=== PATIENT | male | born 1960 | race Caucasian/White ===

== ENCOUNTER 2025-07-08 11:18 | Emergency (ER) | payer BC ==
[~2025-07-08] VITALS: Ht 172.7 cm; Wt 77.3 kg
--- NOTE | 2025-07-08 11:34 | ELECTROCARDIOGRAPH REPORT ---
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
[2025-07-08 11:54] LABS: MEAN PLATELET VOLUME 7.0 FL (7.4-10.4); RED CELL DISTRIBUTION WIDTH 14.3 % (11.5-14.5)
[2025-07-08 12:25] LABS: CREATININE 1.06 MG/DL (0.60-1.10); PRO BRAIN NATRIURETIC PEPTIDE 210 PG/ML (0-125); TOTAL CARBON DIOXIDE 26.8 MMOL/L (24-32); eCRCL 68 ML/MIN; eGFR 70 ML/MIN
--- NOTE | 2025-07-08 13:34 | Physician Documentation ---
History of Present Illness ~ Chief Complaint: Hypertension Stated Complaint: HIGH BLOOD PRESSURE Time Seen by MD: 12:53 HPI 65 year old male with hypertension at home over 200 systolic. He takes lisinopril. He describes a mild headache today but nothing acute, no neurologic deficits, no chest pain, no shortness of breath, no chest or abdominal pain, no nausea/vomiting. Medication Reconciliation Allergies: Coded Allergies: No Known Allergies (Unverified , 07/08/25) Review of Systems All Other Systems at this time: Reviewed and Negative Physical Exam Vital Signs: RN Vital Signs have been reviewed: Yes, Temperature: 97.6, Source: Temporal, Heart Rate: 62, Respiratory Rate: 12, BP: 195/114, Pulse Oximetry: 97, Weight: 77.270 Physical Exam HEENT: PERRL, moist oral mucosa, EOMI Pulmonary: No respiratory distress MSK: no deformity Skin: w/d/i, no rash Neuro: alert, nonfocal Psych: normal affect Progress Results/Orders Results/Orders Orders - MATT SANTOS MD Chest,Single View (07/08/25 11:30) Monitor (07/08/25 11:30) Saline Lock (07/08/25 11:30) Oxygen (07/08/25 11:30) Hs Troponin I W Calculations (07/08/25 13:30) Hs Troponin I W Calculations (07/08/25 14:30) Completed Orders - MATT SANTOS MD Chest,Single View (07/08/25 11:30) Cbc/Diff (07/08/25 11:30) BMP (07/08/25 11:30) PBNP (07/08/25 11:30) Electrocardiogram (07/08/25 11:30) Hs Troponin I W Calculations (07/08/25 11:30) Lisinopril Tablet (Zestril Tablet) (07/08/25 12:55) Medications Received in ER Medications (Trade) Dose Ordered Sig/Colleen Route PRN Reason Start Time Stop Time Status Last Admin Dose Admin (Zestril tablet) 10 mg ONCE ONCE PO 07/08/25 12:55 07/08/25 12:56 DC 07/08/25 13:05 10 MG Vital Signs 07/08/25 07/08/25 07/08/25 07/08/25 11:26 13:00 13:05 13:06 Temp 97.6 Pulse 68 62 62 Resp 18 12 12 B/P (MAP) 197/104 195/114 (141) Pulse Ox 98 97 Laboratory Tests Test 07/08/25 11:41 White Blood Count 4.9 Red Blood Count 4.48 L Hemoglobin 13.5 L Hematocrit 40.0 L Mean Corpuscular Volume 89.2 Mean Corpuscular Hemoglobin 30.1 Mean Corpuscular Hemoglobin Concent 33.8 Red Cell Distribution Width 14.3 Platelet Count 213 Mean Platelet Volume 7.0 L Neutrophils (%) (Auto) 49.4 Lymphocytes (%) (Auto) 39.3 Monocytes (%) (Auto) 8.6 Eosinophils (%) (Auto) 1.9 Basophils (%) (Auto) 0.8 Neutrophils # (Auto) 2.4 Lymphocytes # (Auto) 1.9 Monocytes # (Auto) 0.4 Eosinophils # (Auto) 0.1 Basophils # (Auto) 0.0 CBC Comment Sodium Level 141 Potassium Level 3.6 Chloride Level 106 Carbon Dioxide Level 26.8 Anion Gap 8 Blood Urea Nitrogen 18 Creatinine 1.06 Estimated GFR/1.73 m2 70 BUN/Creatinine Ratio 17.0 Glucose Level 90 Calcium Level 8.9 Troponin I High Sensitivity 8 Pro-B-Type Natriuretic Peptide 210 H Albumin 4.0 Chemistry Comments Medical Decision Making Findings 65 year old male with hypertension and no red flag signs/symptoms. Workup entirely negative including EKG interpreted by me which demonstrated no ST elevation criteria, no dysrhythmia, normal sinus rhythm at a rate of 57/min. CXR interpreted by me demonstrated normal contours, no PTX, no PNA, no acute findings. Spoke with patient, reassured, discharged with return precautions. Differential Dx:Considerations: Include CHF, Include HTN, essential, Include HTN, encephalopathy, Include medical noncompliance, Include medication withdrawal, Include pulmonary edema, Include renal failure Departure Disposition: HOME / SELF CARE / HOMELESS Impression: Primary Impression: Benign hypertension Condition: Stable Discharge Instructions: Hypertension, Adult, [id number] Referrals: NO PRIMARY CARE PROVIDER (PCP) Education Educated: Patient Educated regarding: diagnosis, treatment, prognosis, need for follow up Signature Scribe Signature: . Attestation: . MATT SANTOS MD Jul 08, 2025 13:34
[2025-07-08 13:40] VITALS: BP 195/114; PULSE 64; RESP 16; TEMP 98.6; O2SAT 97
--- NOTE | 2025-07-10 08:57 | RADIOLOGY REPORT ---
CHEST RADIOGRAPH Indication: CP Technique: Single frontal view of the chest was obtained COMPARISON: None FINDINGS: Lines and Tubes: None Lungs: Clear Pleura: No effusion. No pneumothorax. Cardiomediastinal contours: Unremarkable Bones: Unremarkable IMPRESSION: No acute disease.
== END 2025-07-08 13:45 | disposition home or self-care (01) ==
LOC: ER 11:19
DX: I10 Essential (primary) hypertension (principal); R51.9 Headache, unspecified
CPT/HCPCS: 36415; 71045; 80048; 83880; 84484; 85025; 93005; 99285